=== PATIENT | male | born 1965 ===

== ENCOUNTER 2018-01-26 10:17 | Emergency (ER) | payer BC, OTHER ==
[2018-01-26 11:40] VITALS: BP 109/74
[2018-01-26] MEDS ORDERED: Ibuprofen TAB* 600 MG PO ONE (11:48)
--- NOTE | 2018-01-26 11:57 | UC ---
Lower Extremity/Ankle HPI - HPI Summary HPI Summary: [facility] attending Gerald Lindsey MD. Pt is a 52 y/o F RLE pain and swelling onset ~4 days ago. Pain is localized in the dorsal aspect, described as a sharp, constant pain that is rated an 8/10, per comp. assessment. Assoc. Sx: R foot swelling, pain. Denies: ankle pain, skin , break, fever, cellulitis. He reports no trauma to foot. Aggr. factors: bearing weight, ambulation. - History of Current Complaint Chief Complaint: UCLowerExtremity Stated Complaint: R FOOT PAIN Time Seen by Provider: 01/26/18 11:42 Hx Obtained From: Patient Onset/Duration: Gradual Onset, Lasting Days - 4, Still Present Severity Currently: Severe Pain Intensity: 8 Pain Scale Used: 0-10 Numeric Aggravating Factor(s): Standing, Ambulation Alleviating Factor(s): Nothing - Allergies/Home Medications Allergies/Adverse Reactions: Allergies Allergy/AdvReac Type Severity Reaction Status Date / Time No Known Allergies Allergy Verified 01/26/18 11:33 Home Medications: Home Medications Ibuprofen 200 mg PRN 01/26/18 [History] PMH/Surg Hx/FS Hx/Imm Hx Other Endocrine History: NEG: DM Other Cardiovascular History: NEG: CAD, HTN - Surgical History Surgical History: None - Family History Known Family History: Positive: Hypertension, Diabetes Negative: Cardiac Disease - Social History Occupation: Employed Full-time Lives: With Family Alcohol Use: None Substance Use Type: None Smoking Status (MU): Never Smoked Tobacco Review of Systems Constitutional: Other - NEG: fever Skin: Other - NEG: skin break, cellulitis Musculoskeletal: Other: - POS: R foot swelling, pain NEG: ankle pain All Other Systems Reviewed And Are Negative: Yes Physical Exam - Summary Physical Exam Summary: General: well-appearing, no pain distress Skin: warm, color reflects adequate perfusion, dry Head: normal Eyes: EOMI, RAMAN ENT: normal Neck: supple, nontender Respiratory: CTA, breath sounds present Cardiovascular: RRR Abdomen: soft, nontender Bowel: present Musculoskeletal: normal, strength/ROM intact R lateral foot dorsal: (+) erythema, (+) swelling, (-) streaking, (+) TTP 1st MTP: (-) TTP Ankle: (-) TTP Neurological: sensory/motor intact, A&O x3 Psychological: affect/mood appropriate Triage Information Reviewed: Yes Vital Signs: Initial Vital Signs Temp 98.0 F 01/26/18 11:35 Pulse 61 01/26/18 11:35 Resp 16 01/26/18 11:35 BP 109/74 01/26/18 11:35 Pulse Ox 100 01/26/18 11:35 Vital Signs Reviewed: Yes Diagnostics - Radiology Foot XR Xray Interpretation: Positive (See Comments) - IMPRESSION: Prominant hallux valgus deformity. No fracture of foot noted. Radiology Interpretation Completed By: Radiologist - Provider has reviewed report. Lower Extremity Course/Dx - Course Course Of Treatment: Patient was seen by physician. Was sent went for imaging of R foot. XR negative, he will be D/C home. Medications reviewed. Allergies noted. DISCUSSED RESULTS WITH THE PATIENT. CLINICALLY, DOES NOT APPEAR TO BE CELLULITIS. PATIENT REPORTS HE HAD THE SAME PROBLEM A COUPLE OF YEARS AGO; IT WAS TREATED GOUT AND GOT BETTER. F/U PMD; RETURN FOR RECHECK SOONER IF WORSE. - Differential Dx/Diagnosis Provider Diagnoses: RIGHT FOOT PAIN/SWELLING Discharge - Sign-Out/Discharge Documenting (check all that apply): Patient Departure - Discharge Plan Condition: Stable Disposition: HOME Prescriptions: Indomethacin 50 mg PO TID #21 capsule predniSONE TAB* [Deltasone 20 MG TAB*] 40 mg PO DAILY #10 tab Patient Education Materials: Gout (ED), Foot Sprain (ED) Referrals: [facility] [place] [facility] [Outside] Additional Instructions: FOLLOW UP WITH YOUR DOCTOR. GET RECHECKED FOR ANY WORSENING OF YOUR CONDITION; INCREASED PAIN, SPREAD OF REDNESS, INFECTION OR QUESTIONS OR CONCERNS. - Billing Disposition and Condition Condition: STABLE Disposition: Home
--- NOTE | 2018-01-26 12:44 | RAD ---
INDICATION: Atraumatic pain. Gout. Swelling. COMPARISON: None TECHNIQUE: AP, lateral, and oblique views were obtained. FINDINGS: There is no acute bony change. There is a prominent hallux valgus deformity. There is minor soft tissue swelling about the first MTP joint. IMPRESSION: PROMINENT HALLUX VALGUS DEFORMITY.
== END 2018-01-26 13:08 | disposition home or self-care (01) ==
LOC: UCEAST 10:17
DX: M79.671 Pain in right foot (principal); M79.89 Other specified soft tissue disorders; M20.11 Hallux valgus (acquired), right foot; Z82.49 Family history of ischemic heart disease and other diseases of the circulatory system; Z83.3 Family history of diabetes mellitus
CPT/HCPCS: 99203; A9270-GY; G0463